=== PATIENT | female | born 1990 | race African-American/Black ===

== ENCOUNTER 2018-05-18 12:56 | Emergency (ER) | payer OTHER ==
[~2018-05-18] VITALS: Ht 162.6 cm; Wt 57.1 kg
[2018-05-18 13:45] LABS: URINE BILIRUBIN NEGATIVE (Negative); URINE BLOOD 3+ (Negative); URINE CLARITY CLEAR; URINE COLOR YELLOW; URINE GLUCOSE-RANDOM* NEGATIVE (Negative); URINE KETONES NEGATIVE (Negative); URINE LEUKOCYTES NEGATIVE (Negative); URINE NITRITE POSITIVE (Negative); URINE PROTEIN (DIPSTICK) NEGATIVE (Negative); URINE SPECIFIC GRAVITY <= 1.005 (1.005-1.035); URINE UROBILINOGEN 0.2 E.U./dl (0.2-1.0)
[2018-05-18 13:51] LABS: AMP/METHAMP Negative (Negative); BARBITURATES Negative (Negative); BENZODIAZEPINES Negative (Negative); COCAINE Negative (Negative); METHADONE Negative (Negative); OPIATES Negative (Negative); PCP Negative (Negative)
[2018-05-18 14:06] LABS: CASTS None Seen /LPF (None Seen); SQUAMOUS 0-3 Few /LPF (0-3); URINE WBC None Seen /HPF (0-5)
[2018-05-18 14:07] LABS: BACTERIA None Seen /HPF (None Seen); CRYSTALS None Seen /LPF (None Seen); URINE RBC 0-2 Rare /HPF (0-2)
[2018-05-18] MEDS ORDERED: UNICOMPLEX M TA1 TA1 PO (14:55)
[2018-05-18 15:04] LABS: ABSOLUTE NEUTROPHILS 4.1 thou/uL (1.4-8.2); BASOPHILS 0.6 % (0.0-2.0); EOSINOPHILS 0.1 % (0.0-3.0); HEMATOCRIT 37.6 % (37.0-47.0); HEMOGLOBIN 12.8 gm/dL (12.0-15.0); LYMPHOCYTES 22.8 % (24.0-44.0); MCH 29.6 pg (26.0-34.0); MCHC 33.9 g/dL (28.0-37.0); MCV 87.3 fL (80.0-100.0); MONOCYTES 8.9 % (1.0-8.0); PLATELET COUNT 259 thou/uL (150-400); POLYS 67.6 % (36.0-66.0); RBC 4.31 mil/uL (4.20-5.00); RDW 13.5 % (10.5-14.5)
[2018-05-18 15:06] LABS: ANION GAP 15 mmol/L (7-16); BUN 11 mg/dL (7-18); CHLORIDE 100 mmol/L (98-107); CO2 20 mmol/L (21-32); CREATININE 0.9 mg/dL (0.6-1.0); GLUCOSE 80 mg/dL (74-106); POTASSIUM 3.4 mmol/L (3.5-5.1); SODIUM 135 mmol/L (136-145)
[2018-05-18 15:12] LABS: ALBUMIN 4.4 g/dL (3.4-5.0); SALICYLATE < 2.8 mg/dL (2.8-20.0); SGOT 32 U/L (15-37); SGPT 26 U/L (30-65); TOTAL BILIRUBIN 0.8 mg/dL (<0.1-1.0); TOTAL PROTEIN 9.2 g/dL (6.4-8.2)
[2018-05-18] MEDS ORDERED: ATIVAN0.5 MG PO (16:37)
[2018-05-18 16:50] VITALS: BP 118/82
== END 2018-05-18 16:50 | disposition home or self-care (01) ==
LOC: ER 12:56
PROVIDERS: Physician Assistant
DX: F41.9 Anxiety disorder, unspecified (principal); F43.10 Post-traumatic stress disorder, unspecified

== ENCOUNTER 2018-06-05 15:23 | Emergency (ER) | payer OTHER ==
[~2018-06-05] VITALS: Ht 162.6 cm; Wt 57.1 kg
[~2018-06-05 15:23] MED LIST: ATIVAN0.5 MG PO; UNICOMPLEX M TA1 TA1 PO
[2018-06-05] MEDS ORDERED: LORAZEPAM 0.50.5 M1 PO (16:55)
== END 2018-06-05 17:03 | disposition home or self-care (01) ==
LOC: ER 15:23
DX: F41.9 Anxiety disorder, unspecified (principal); F43.10 Post-traumatic stress disorder, unspecified; Z88.5 Allergy status to narcotic agent

== ENCOUNTER 2018-07-10 15:43 | Emergency (ER) | payer OTHER ==
[~2018-07-10] VITALS: Ht 162.6 cm; Wt 54.9 kg
[~2018-07-10 15:43] MED LIST changes: +LORAZEPAM 0.50.5 M1 PO
[2018-07-10] MEDS ORDERED: REMERON15 MG PO (15:56)
[2018-07-10] MEDS ORDERED: NORCO 5-325 TA1 EACH PO (17:35)
[2018-07-10 17:40] VITALS: BP 112/72
== END 2018-07-10 17:41 | disposition home or self-care (01) ==
LOC: ER 15:43
DX: M22.2X2 Patellofemoral disorders, left knee (principal); M22.2X1 Patellofemoral disorders, right knee; F41.9 Anxiety disorder, unspecified; Z87.891 Personal history of nicotine dependence; Z88.5 Allergy status to narcotic agent

== ENCOUNTER 2020-09-30 13:24 | Emergency (ER) | payer OTHER ==
[~2020-09-30] VITALS: Ht 162.6 cm; Wt 89.4 kg
[~2020-09-30 13:24] MED LIST changes: +NORCO 5-325 TA1 EACH PO; +REMERON15 MG PO
[2020-09-30 13:33] VITALS: BP 111/66
[2020-09-30] MEDS ORDERED: ZIPRASIDONE HCL20 M1 PO (13:38)
[2020-09-30] MEDS ORDERED: PRAZOSIN 1 MG CA1 MG PO (13:39)
[2020-09-30] MEDS ORDERED: AMBIEN5 MG PO (13:40)
[2020-09-30] MEDS ORDERED: MELATONIN5 MG PO (13:40)
== END 2020-09-30 15:47 | disposition left against medical advice (07) ==
LOC: ER 13:24
DX: R51.9 Headache, unspecified (principal); Z79.899 Other long term (current) drug therapy; Z88.5 Allergy status to narcotic agent; Z87.891 Personal history of nicotine dependence